=== PATIENT | female | born 1990 | race Caucasian/White ===

== ENCOUNTER 2016-09-04 10:55 | Emergency (ER) | payer MEDICAID ==
--- NOTE | 2016-09-05 14:51 | ER ---
ADMIT: 09/04/2016 RM/LOC: ER [facility] MR#: [id number] [facility] [address] [place] [id number] SUSAN PETERS , Emergency Room Report SEX: F AGE: 26 : 1990 DATE: 09/04/2016 Susan is a 26-year-old female, who is known to be 12-weeks gestation and was seen by her induction machine operator yesterday, who told her that she was in the process of spontaneous . He sent her home and told her to expect some heavy bleeding. She reported heavy bleeding this morning with generalized abdominal pain and pain radiating to her back. She reported it was a 6 to 8/10. Over the course of the emergency room visit, we did two vaginal exams that revealed blood clots to the quantity of approximately 4 to 6 cups. She was given a Lortab 5/325 for pain. She was given Toradol 15 mg IM for pain. She started having an emesis and feeling sick to her stomach with pale and diaphoretic, so we gave her a bolus of normal saline and Zofran. This seem to help her quite a bit. We then contacted Dr. Gastelum, [employer], who was very familiar with the case and stated to give her Cytotec 400 mcg buccally. This was done, and she did report some more cramping and rated her pain at 8/10. At that time, she was given 2 mg of morphine which seemed to help with her pain. She felt like she was stable to discharge to home. She was sent home with another 400 mcg of Cytotec that she can take buccally if she feels like she needs to fully evacuate her uterus. She is going to follow up next week with her [employer]. She was told if she has large quantities of bleeding going through one pad hourly, she has to return to the emergency room. Liana Montaño APRN/ wild JOB #: [id number] CC: David Rivas MD, Attending Physician
== END 2016-09-04 11:20 | disposition home or self-care (01) ==
LOC: ER 10:55
DX: O03.9 Complete or unspecified spontaneous abortion without complication (principal); Z3A.12 12 weeks gestation of pregnancy